=== PATIENT | male | born 1955 | race Caucasian/White ===

== ENCOUNTER → 2017-05-25 | Outpatient (CLI) | payer BC ==
[~2017-05-25] MED LIST: CIPR250T; LORTAB PO; PYRUNK
--- NOTE | 2017-05-25 10:45 | DIAGNOSTIC IMAGING REPORT ---
KUB CLINICAL HISTORY: N20.0 [id number] COMPARISON STUDY: 07/07/2015 FINDINGS: There is a lumbar scoliosis. There is no pathologic bowel dilatation. No urinary tract calculi are visualized on conventional radiographic imaging. The renal shadows are partially obscured overlying bowel gas and fecal material. There is a stable right pelvic basin calcification likely representing a phlebolith. IMPRESSION: No calculi are visualized on conventional radiographic imaging Electronically signed by: Christian Daniel M.D. 05/25/2017 10:43 AM Dictated Date/Time: 05/25/2017 10:43 AM
== END | disposition home or self-care (01) ==
LOC: C.RAD 10:11
PROVIDERS: ATTEND Nurse Practitioner Family
DX: N20.0 Calculus of kidney (principal)